=== PATIENT | male | born 1960 | race Caucasian/White ===

== ENCOUNTER 2017-11-21 20:34 | Emergency (ER) | payer BC ==
[2017-11-21] MEDS ORDERED: Acetaminophen/HYDROcodone 325-5 MG Tab PO ONE (21:36)
--- NOTE | 2017-11-21 21:38 | EDM.PDOC ---
ED HPI GENERAL MEDICAL PROBLEM - General Chief Complaint: Lower Extremity Injury/Pain Stated Complaint: CRAMP IN LEG NUMB Time Seen by Provider: 11/21/17 21:21 Source of Information: Reports: Patient, Family () History Limitations: Reports: No Limitations - History of Present Illness INITIAL COMMENTS - FREE TEXT/NARRATIVE: The patient states that he slipped and fell after he got off of his rider mower , which was on a slope, yesterday evening around 20:00. He states that he had immediate pain in his left buttock, although it was not very severe last night. He states that he was able to sleep, and even felt fairly well this morning, however, he then went fishing, and developed worsening pain, a cramping sensation, to his posterior left thigh and left buttock, around 10:00. The pain is made worse if he sits on it; he is relatively comfortable with standing. Heat and massage help, but only temporarily. He took Advil last night, Aleve this morning, and Tylenol around noon today. The patient then stated that he developed some numbness to the medial aspect of his left knee extending down primarily the anterior left leg, less the posterior left leg, around 15:00 or 16:00 this afternoon. The numbness sensation extends to the ankle, and does not extend to the foot. The patient denies recent chest pain or abdominal pain. No prior similar symptoms. The patient's PCP is Dr. Jiang. Left Hip Pain Score (Numeric/FACES): 2 - Related Data Allergies Allergy/AdvReac Type Severity Reaction Status Date / Time No Known Allergies Allergy Verified 06/03/17 07:03 Home Meds: Home Meds Acetaminophen/HYDROcodone [Eaton 325-5 MG] 1 - 2 tab PO Q6H PRN #12 tablet 11/21 [Rx] Allopurinol [Zyloprim] 100 mg PO DAILY 11/21/17 [History] Aspirin [Halfprin] 81 mg PO DAILY 11/21/17 [History] Exenatide Microspheres [Bydureon Pen] 2 mg INJECT WEEKLY 11/21/17 [History] Telmisartan [Micardis] 80 mg PO DAILY 11/21/17 [History] atorvaSTATin [Lipitor] 40 mg PO DAILY 11/21/17 [History] metFORMIN [Glucophage] 0 mg PO DAILY 11/21/17 [History] Past Medical History Cardiovascular History: Reports: High Cholesterol, Hypertension Respiratory History: Reports: Sleep Apnea (nightly CPAP 19) Musculoskeletal History: Reports: Other (See Below) (Pseudogout) Endocrine/Metabolic History: Reports: Diabetes, Type II, Obesity/BMI 30+ - Past Surgical History Musculoskeletal Surgical History: Reports: Carpal Tunnel (right only) Social & Family History - Tobacco Use Smoking Status *Q: Never Smoker - Caffeine Use Caffeine Use: Reports: Coffee - Alcohol Use Alcohol Use History: Yes Alcohol Use Frequency: Socially (occasionally to excess) - Recreational Drug Use Recreational Drug Use: No - Living Situation & Occupation Living situation: Reports: , with Spouse Occupation: Employed ([employer]) Review of Systems - Review of Systems Review Of Systems: ROS reveals no pertinent complaints other than HPI. ED EXAM, GENERAL - Physical Exam Exam: See Below Exam Limited By: No Limitations General Appearance: Alert, WD/WN, Mild Distress (Appears uncomfortable) Respiratory/Chest: No Respiratory Distress, Lungs Clear, Normal Breath Sounds, No Accessory Muscle Use Cardiovascular: Normal Peripheral Pulses, Regular Rate, Rhythm, No Edema, No Gallop, No JVD, No Murmur, No Rub Peripheral Pulses: 4+: Femoral (L), Femoral (R) GI/Abdominal: Normal Bowel Sounds, Soft, Non-Tender, No Organomegaly, No Distention, No Abnormal Bruit, No Mass, Other (Obese) (Male) Exam: Deferred Rectal (Males) Exam: Deferred Back Exam: Normal Inspection, Full Range of Motion Extremities: Other (Ecchymosis with associated induration, consistent with a hematoma noted to the patient's left buttock, and also to the superior aspect of the left posterior thigh. There is induration without visible ecchymosis to the posterior aspect of the patient's left thigh. Vascular status of the left lower extremity is intact.) Neurological: Alert, Oriented, Normal Cognition, No Motor/Sensory Deficits Psychiatric: Normal Affect Skin Exam: Warm, Dry, Intact, Normal Color, No Rash Course - Vital Signs Last Recorded V/S: Last Vital Signs Temp 37.4 C 11/21/17 20:42 Pulse 128 H 11/21/17 20:42 Resp 20 11/21/17 20:42 BP 151/71 H 11/21/17 20:42 Pulse Ox 98 11/21/17 20:42 - Orders/Labs/Meds Orders: Active Orders 24 hr Category Date Time Status Extremity Non Vascular Lt [US] Stat Exams 11/21/17 21:38 Taken VL Duplex Lwr Ext Veins Ltd Lt [US] Stat Exams 11/21/17 21:39 Taken Meds: Medications Discontinued Medications Generic Name Dose Route Start Last Admin Trade Name Freq PRN Reason Stop Dose Admin Hydrocodone Bitart/Acetaminophen 2 tab 11/21/17 21:36 11/21/17 21:42 Eaton 325-5 Mg PO 11/21/17 21:37 2 tab ONETIME ONE Administration - Re-Assessments/Exams Free Text/Narrative Re-Assessment/Exam: 11/21/17 22:53 Venous Doppler of the left lower extremity is read by [facility] as "No deep venous thrombosis is seen." 11/21/17 22:56 Nonvascular ultrasound of the left lower extremity is read by [facility] as: Complex fluid collection mid posterior/medial thigh, consistent with hematoma. Possible muscular edema in mid thigh. 11/21/17 23:03 Ultrasound results discussed with the patient and his . I suspect that the patient has a torn hamstring as the source of his thigh hematoma. It was explained to the patient and his that a MRI would be needed to confirm such a tear, which is not available from the ED. For tonight's purposes, I will have the patient take [id number] ibuprofen, and I will give him a prescription for Eaton that he can fill in the morning. I will refer the patient to Dr. Holcomb, with whom the patient can follow-up as early as tomorrow. Departure - Departure Time of Disposition: 23:05 Disposition: Home, Self-Care 01 Condition: Fair Clinical Impression: Hamstring tendon rupture, Hematoma of left thigh - Discharge Information Prescriptions: Acetaminophen/HYDROcodone [Eaton 325-5 MG] 1 - 2 tab PO Q6H PRN #12 tablet PRN Reason: Pain (Severe 7-10) Referrals: Ok Hernandez MD [Primary Care Provider] - Willard Holcomb MD [Physician] - Forms: ED Department Discharge Additional Instructions: You were seen in the emergency room after slipping and falling, causing pain to your left buttock and thigh. Workup in the ER included an ultrasound of the soft tissue of her left lower extremity, as well as a venous Doppler of your left lower extremity. The ultrasound of your left lower extremity confirmed that you have a hematoma in the back of your thigh, as well as muscle swelling. It is suspected that you have torn your hamstring tendon, although a MRI would be needed to confirm it. The venous Doppler showed no deep vein clot. Take [id number] ibuprofen, 2-3 tablets (400-600 mg) every 8 hours, with food, as needed for discomfort. Take 1 to 2 tablets of the narcotic pain reliever Eaton up to every 6 hours, as needed for pain not relieved by ibuprofen. If you take Eaton, do not drive or operate heavy machinery for 10 hours afterwards. Eaton will likely cause constipation, so consider taking a stool softener. Follow-up with the Orthopedic Surgeon Dr. Willard Holcomb at the next available appointment, for further evaluation. If any other problems, please do not hesitate to return to the ER. - My Orders Last 24 Hours: My Active Orders 11/21/17 21:38 Extremity Non Vascular Lt [US] Stat 11/21/17 21:39 VL Duplex Lwr Ext Veins Ltd Lt [US] Stat - Assessment/Plan Last 24 Hours: My Active Orders 11/21/17 21:38 Extremity Non Vascular Lt [US] Stat 11/21/17 21:39 VL Duplex Lwr Ext Veins Ltd Lt [US] Stat
--- NOTE | 2017-11-22 08:54 | US ---
Left lower extremity deep venous ultrasound: Duplex and color flow imaging was obtained of the left common femoral, proximal greater saphenous, superficial femoral, popliteal, posterior tibial and peroneal veins. Phasic flow not well seen within the left lower extremity with normal compression and augmentation seen. Impression: 1. No evidence of deep venous thrombosis within the left lower extremity or within the right common femoral vein. Diagnostic code #1 Agree with preliminary report issued by [facility] ([facility] preliminary report dictated on 11/21/17, 11:51 PM Central Time)
--- NOTE | 2017-11-22 08:54 | US ---
Left buttock and thigh ultrasound: Multiple real-time images were obtained. Posterior medial thigh shows a fluid collection measuring approximate 6.2 x 2.2 x 5.0 cm most likely due to hematoma if patient has had recent trauma. Muscle edema also identified within the mid medial thigh in area of clinical swelling. Impression: 1. Muscle hematoma as well as muscle edema being seen within the thigh. Diagnostic code #3 Agree with preliminary report issued by [facility] ([facility] preliminary report dictated on 11/21/17, 11:53 PM Central Time)
== END 2017-11-21 23:26 | disposition home or self-care (01) ==
LOC: JD.ED 20:34
DX: S76.312A Strain of muscle, fascia and tendon of the posterior muscle group at thigh level, left thigh, initial encounter (principal); S70.12XA Contusion of left thigh, initial encounter; E78.00 Pure hypercholesterolemia, unspecified; I10 Essential (primary) hypertension; E11.9 Type 2 diabetes mellitus without complications; Z79.82 Long term (current) use of aspirin; Z79.84 Long term (current) use of oral hypoglycemic drugs; W01.0XXA Fall on same level from slipping, tripping and stumbling without subsequent striking against object, initial encounter
CPT/HCPCS: 76881; 93971; 99284; A9270; 99283

== ENCOUNTER 2019-03-08 06:29 | Day surgery (SDC) | payer BC ==
[~2019-03-08 06:29] MED LIST: FLU Vacc QS2019-20(6MOS+)/PF 60 MCG/0.5 ML SYRINGE IM ONE; Lactated Ringers 1,000 ML IV SCH; Lidocaine 1%/Sod Bicarbonate in NS 8.4% 1 ML Syringe IDERM PRN; Sodium Chloride 0.9% 10 ML Syringe FLUSH PRN
[2019-03-08] MEDS ORDERED: ceFAZolin 1 GM Vial ONE (07:07)
[2019-03-08] MEDS: Bupivacaine 0.25% 10 ML SDV ONE ×2 (07:33→07:39)
[2019-03-08] MEDS: Lidocaine 1% 30 ML SDV ONE ×2 (07:33→07:39)
[2019-03-08] MEDS ORDERED: FLU Vacc QS2019-20(6MOS+)/PF 60 MCG/0.5 ML SYRINGE IM ONE (09:00)
--- NOTE | 2019-03-13 09:02 | PCM.OPNOTE ---
- General Post-Op/Procedure Note Date of Surgery/Procedure: 03/08/19 Operative Procedure(s): bilateral middle finger a1 amanda release Pre Op Diagnosis: bilateral middle finger stenosing tenosynovitis Post-Op Diagnosis: Same Anesthesia Technique: Local Primary Surgeon: Jl Townsend Instrument Maker Apprentice: Cha Eden in mLs: 5 Complications: None Condition: Good
--- NOTE | 2019-03-13 09:23 | OR ---
DATE OF OPERATION: 03/08/2019 SURGEON: Jl Townsend MD OPERATION PERFORMED: Bilateral middle finger A1 amanda release. PREOPERATIVE DIAGNOSIS: Bilateral middle finger stenosing tenosynovitis. POSTOPERATIVE DIAGNOSIS: Bilateral middle finger stenosing tenosynovitis. ANESTHESIA: Local only. SERGER: Cha Eden PA-C. ESTIMATED BLOOD LOSS: 5 mL. COMPLICATIONS: None. CONDITION: Stable. DESCRIPTION OF PROCEDURE: The patient was identified in the preoperative holding area. Proper site was marked and identified by the surgeon. The patient was taken back to the operating theatre where the bilateral upper extremities were sterilely prepped and draped in the usual sterile fashion. An OR time-out was performed. Starting with the left side, 1% lidocaine without epinephrine and 0.25% Marcaine without epinephrine were used to anesthetize over the A1 amanda at the left middle finger. Esmarch was used as a tourniquet on the forearm. Transverse incision was made. Blunt dissection was taken down to the A1 amanda. Ragnell retractors protected the neurovascular bundles and a [place] blade was used to resect the A1 amanda both proximally and distally until it was fully released. The patient was able to make a full fist and it had no triggering. At this time, adequate saline was irrigated through the wound and 4-0 nylon suture was used for closure of the incision and then attention was turned to the right side. At this time, again Esmarch was used as a tourniquet on the forearm and 1% lidocaine without epinephrine and 0.25% Marcaine without epinephrine were used again to anesthetize over the right middle finger A1 amanda, and the similar procedure was done all the way down making sure to release it with a [place] blade all the way proximally and distally. Again, this was closed with 4- 0 nylon. The patient was placed in sterile soft dressings bilaterally and was sent to the PACU in stable condition. MMESTEBAN /[id number]
== END 2019-03-08 09:05 | disposition home or self-care (01) ==
LOC: JD.SDS 06:29
PROVIDERS: ATTEND Orthopaedic Surgery
DX: M65.332 Trigger finger, left middle finger (principal); M65.331 Trigger finger, right middle finger; M10.9 Gout, unspecified; E78.00 Pure hypercholesterolemia, unspecified; I10 Essential (primary) hypertension; G47.33 Obstructive sleep apnea (adult) (pediatric); E11.9 Type 2 diabetes mellitus without complications; Z99.89 Dependence on other enabling machines and devices; Z79.899 Other long term (current) drug therapy; Z79.82 Long term (current) use of aspirin
CPT/HCPCS: 26055; 82962; 87641; 90686; J0690; J2001; J3490; J7120; G0008

== ENCOUNTER 2019-04-24 08:46 | Emergency (ER) | payer BC ==
[2019-04-24] MEDS ORDERED: EPINEPHrine 1 MG/ML SDV IM ONE ×2 (09:07→10:27)
[2019-04-24] MEDS ORDERED: diphenhydrAMINE 50 MG Cap PO ONE (09:07)
[2019-04-24] MEDS ORDERED: Sodium Chloride 0.9% 10 ML Syringe FLUSH PRN (09:08)
[2019-04-24] MEDS ORDERED: methylPREDNISolone Sodium Succinate 125 MG/2 ML SDV IVPUSH ONE (09:08)
[2019-04-24] MEDS ORDERED: EPINEPHrine 1 MG/1 ML Amp ONE (09:12)
--- NOTE | 2019-04-24 09:12 | EDM.PDOC ---
ED HPI GENERAL MEDICAL PROBLEM - General Chief Complaint: Allergic Reaction Stated Complaint: SEVERE ALLERGIC REACTION Time Seen by Provider: 04/24/19 09:01 Source of Information: Reports: Patient, RN Notes Reviewed - History of Present Illness INITIAL COMMENTS - FREE TEXT/NARRATIVE: 5-year-old male presented to [facility] with signs and symptoms of allergic reaction. He was advised to come here to the emergency department. States he had onset of some mild itchiness last evening around bedtime. He awakened this morning he felt much more itchy all over and now has various areas of rash and erythema and tired body. Has not taken any new medication. His last meal was yesterday afternoon. He has no idea what is causing this reaction. He does feel some swelling around his eyes but no other area facial swelling. No chest pain or difficulty breathing. The itchiness is his major distress at this time. - Related Data Allergies Allergy/AdvReac Type Severity Reaction Status Date / Time No Known Allergies Allergy Verified 03/07/19 10:37 Home Meds: Home Meds Allopurinol [Zyloprim] 100 mg PO DAILY 11/21/17 [History] Aspirin [Halfprin] 81 mg PO DAILY 11/21/17 [History] atorvaSTATin [Lipitor] 40 mg PO DAILY 11/21/17 [History] Canagliflozin/Metformin HCl [Invokamet Xr 150-500 mg Tablet] 2 tab PO DAILY 01/16 [History] Dulaglutide [Trulicity] 0.5 ml SQ WE 03/07/19 [History] Telmisartan/Hydrochlorothiazid [Telmisartan-Hctz 40-12.5 mg Tb] 1 tab PO DAILY 03/07/19 [History] traMADol [Ultram] 50 - 100 mg PO Q6H PRN #15 tab 03/08/19 [Rx] Past Medical History HEENT History: Reports: None Cardiovascular History: Reports: High Cholesterol, Hypertension Respiratory History: Reports: Sleep Apnea Other Respiratory History: uses c-pap Gastrointestinal History: Reports: None Genitourinary History: Reports: None FUR FARMER History: Reports: None Musculoskeletal History: Reports: Gout, Other (See Below) Other Musculoskeletal History: pseudo gout Neurological History: Reports: None Psychiatric History: Reports: None Endocrine/Metabolic History: Reports: Diabetes, Type II, Obesity/BMI 30+ Hematologic History: Reports: None Immunologic History: Reports: None Oncologic (Cancer) History: Reports: None Dermatologic History: Reports: None - Past Surgical History Head Surgeries/Procedures: Reports: None HEENT Surgical History: Reports: None Cardiovascular Surgical History: Reports: None Respiratory Surgical History: Reports: None GI Surgical History: Reports: None Male Surgical History: Reports: None Endocrine Surgical History: Reports: None Neurological Surgical History: Reports: None Musculoskeletal Surgical History: Reports: Carpal Tunnel Oncologic Surgical History: Reports: None Dermatological Surgical History: Reports: None Social & Family History - Tobacco Use Smoking Status *Q: Never Smoker - Caffeine Use Caffeine Use: Reports: Coffee - Recreational Drug Use Recreational Drug Use: No - Living Situation & Occupation Living situation: Reports: , with Spouse Occupation: Employed ([employer]) ED ROS ALLERGIC REACTION - Review of Systems Review Of Systems: See Below Constitutional: Denies: Fever, Chills HEENT: Denies: Throat Pain, Vertigo, Vision Change Respiratory: Denies: Shortness of Breath, Wheezing Cardiovascular: Denies: Chest Pain GI/Abdominal: Denies: Abdominal Pain, Nausea, Vomiting Musculoskeletal: Reports: No Symptoms Skin: Reports: Rash, Erythema Neurological: Reports: No Symptoms ED EXAM GENERAL NO PERIP PULSE - Physical Exam Exam: See Below General Appearance: Alert, Moderate Distress Ears: Normal External Exam Nose: Normal Inspection Throat/Mouth: Normal Inspection, Normal Oropharynx Head: Facial Swelling (There is very mild periorbital swelling) Neck: Supple, Full Range of Motion Respiratory/Chest: No Respiratory Distress, Lungs Clear, Normal Breath Sounds. No: Rhonchi, Wheezing Cardiovascular: Tachycardia GI/Abdominal: Soft, Non-Tender Back Exam: No: CVA Tenderness (L), CVA Tenderness (R) Extremities: Normal Inspection, Normal Range of Motion. No: Leg Pain Neurological: Alert, Oriented, No Motor/Sensory Deficits Skin Exam: Warm, Dry, Erythema (Generalized hives and erythema face neck trunk upper and lower extremities) Course - Vital Signs Last Recorded V/S: Last Vital Signs Temp 97.8 F 04/24/19 08:59 Pulse 115 H 04/24/19 08:59 Resp 24 H 04/24/19 08:59 BP 126/80 04/24/19 08:59 Pulse Ox 97 04/24/19 08:59 - Orders/Labs/Meds Orders: Active Orders 24 hr Category Date Time Status Blood Glucose Check, Bedside [RC] ONETIME Care 04/24/19 09:57 Active Peripheral IV Care [RC] . DIRECTED Care 04/24/19 09:09 Active Sodium Chloride 0.9% [Saline Flush] Med 04/24/19 09:08 Active 10 ml FLUSH ASDIRECTED PRN Peripheral IV Insertion Adult [OM.PC] Stat Oth 04/24/19 09:08 Ordered Medication Orders Sodium Chloride (Saline Flush) 10 ml FLUSH ASDIRECTED PRN PRN Reason: Keep Vein Open Last Admin: 04/24/19 09:19 Dose: 10 ml Labs: Laboratory Tests 04/24/19 Range/Units 09:56 POC Glucose 168 H (70-105) mg/dL Meds: Medications Generic Name Dose Route Start Last Admin Trade Name Freq PRN Reason Stop Dose Admin Sodium Chloride 10 ml 04/24/19 09:08 04/24/19 09:19 Saline Flush FLUSH 10 ml ASDIRECTED PRN Administration Keep Vein Open Discontinued Medications Generic Name Dose Route Start Last Admin Trade Name Freq PRN Reason Stop Dose Admin Diphenhydramine HCl 50 mg 04/24/19 09:07 04/24/19 09:18 Benadryl PO 04/24/19 09:08 50 mg ONETIME ONE Administration Epinephrine HCl 0.3 mg 04/24/19 09:07 04/24/19 09:18 Adrenalin IM 04/24/19 09:08 Not Given ONETIME ONE Epinephrine HCl Confirm 04/24/19 09:12 04/24/19 09:23 Adrenalin Administered 04/24/19 09:13 Not Given Dose 1 mg .ROUTE .STK-MED ONE Epinephrine HCl 0.3 mg 04/24/19 09:17 04/24/19 09:17 Adrenalin IM 04/24/19 09:18 0.3 mg ONETIME ONE Administration Epinephrine HCl 0.3 mg 04/24/19 10:27 04/24/19 10:34 Adrenalin IM 04/24/19 10:28 Not Given ONETIME ONE Epinephrine HCl 0.3 mg 04/24/19 10:45 04/24/19 10:44 Adrenalin IM 04/24/19 10:46 0.3 mg ONETIME ONE Administration Loratadine 10 mg 04/24/19 10:30 04/24/19 10:44 Claritin PO 04/24/19 10:31 10 mg ONETIME ONE Administration Methylprednisolone Sodium Succinate 125 mg 04/24/19 09:08 04/24/19 09:18 Solu-Medrol IVPUSH 04/24/19 09:09 125 mg ONETIME ONE Administration - Re-Assessments/Exams Free Text/Narrative Re-Assessment/Exam: 04/24/19 11:05 Patient was initially treated with epi 0.3 mg IM, Benadryl 50 by mouth, Solu- Medrol 125 mg IV. Over time the hives and erythema did lessen but did not go away completely. However itchiness did go away and patient was feeling much better the couple of times I did recheck to see how he is doing. Epinephrine was repeated 1 and he was also given a dose of Claritin by mouth. He and his are not aware of a good explanation of why this occurred. He had a quite simple meal at home last evening. They had been traveling and eating out a day before but no rash or hives than. No new medication although he is on multiple medications for hypertension, diabetes. Discharge instructions as documented. Departure - Departure Time of Disposition: 10:45 Disposition: Home, Self-Care 01 Condition: Fair Clinical Impression: Acute urticaria - Discharge Information Instructions: Allergies, Adult, Eifa-wa-Idec Referrals: Ok Hernandez MD [Primary Care Provider] - Forms: ED Department Discharge Additional Instructions: Continue Claritin 10 mg daily, prednisone 40 mg twice daily for 2 days, than prednisone 40 mg q AM for the next 2 days. Steroid medicine will typically cause blood sugars to run higher so do watch your blood sugars carefully and and be very careful to limit her carbohydrate intake this week. Follow-up clinic if not much better within 1-2 days as expected, return to ED as needed if symptoms worsening in any way. - My Orders Last 24 Hours: My Active Orders 04/24/19 09:08 Sodium Chloride 0.9% [Saline Flush] 10 ml FLUSH ASDIRECTED PRN Peripheral IV Insertion Adult [OM.PC] Stat 04/24/19 09:09 Peripheral IV Care [RC] . DIRECTED 04/24/19 09:57 Blood Glucose Check, Bedside [RC] ONETIME - Assessment/Plan Last 24 Hours: My Active Orders 04/24/19 09:08 Sodium Chloride 0.9% [Saline Flush] 10 ml FLUSH ASDIRECTED PRN Peripheral IV Insertion Adult [OM.PC] Stat 04/24/19 09:09 Peripheral IV Care [RC] . DIRECTED 04/24/19 09:57 Blood Glucose Check, Bedside [RC] ONETIME
[2019-04-24] MEDS ORDERED: EPINEPHrine 1 MG/1 ML Amp IM ONE ×2 (09:17→10:45)
[2019-04-24] MEDS ORDERED: Loratadine 10 MG Tab PO ONE (10:30)
== END 2019-04-24 10:56 | disposition home or self-care (01) ==
LOC: JD.ED 08:46
DX: L50.9 Urticaria, unspecified (principal); I10 Essential (primary) hypertension; E11.9 Type 2 diabetes mellitus without complications; E78.00 Pure hypercholesterolemia, unspecified; M10.9 Gout, unspecified; Z79.82 Long term (current) use of aspirin; Z79.899 Other long term (current) drug therapy
CPT/HCPCS: 82962; 96372; 96374; 99284; A9270; J0171; J2930; 99283

== ENCOUNTER → 2020-06-20 | Day surgery (SDC) | payer BC ==
[~2020-06-20] MED LIST changes: +Bupivacaine 0.25% 10 ML SDV ONE; -FLU Vacc QS2019-20(6MOS+)/PF 60 MCG/0.5 ML SYRINGE IM ONE; +Ketamine 500 mg/10 ML MDV ONE; +Lidocaine 1% 30 ML SDV ONE; +Lidocaine 1% 6 ML ONE; +Midazolam 1 MG/ML 2 ML SDV ONE; +Propofol 200 MG/20 ML SDV ONE; +ceFAZolin 1 GM Vial ONE; +fentaNYL 100 MCG/2 ML SDV ONE
--- NOTE | 2020-06-20 07:36 | PCM.PREANE ---
Preanesthetic Assessment - Procedure Proposed Procedure: Right hand trigger finger release ring finger - Anesthesia/Transfusion/Family Hx Anesthesia History: Prior Anesthesia Without Reaction Family History of Anesthesia Reaction: No - Review of Systems General: No Symptoms Pulmonary: Other (PAT with CPAP) Cardiovascular: Other (CAD, HTN) Gastrointestinal: No Symptoms Neurological: No Symptoms Other: Reports: None (Obesity), Diabetes (Blood Glucose is 109 mg/dl this morning. ) - Physical Assessment NPO Status Date: 06/19/20 NPO Status Time: 20:00 Vital Signs: Last Vital Signs Temp 36.2 C 06/20/20 06:00 Pulse 74 06/20/20 06:00 Resp 16 06/20/20 06:00 BP 122/71 06/20/20 06:00 Pulse Ox 95 06/20/20 06:00 Height: 1.75 m Weight: 117.934 kg ASA Class: 3 Mental Status: Alert & Oriented x3 Airway Class: Mallampati = 3 Dentition: Reports: Missing Tooth/Teeth, Caries Thyro-Mental Finger Breadths: 2 Mouth Opening Finger Breadths: 3 ROM/Head Extension: Full (Large neck circumfrance) Lungs: Clear to Auscultation, Normal Respiratory Effort Cardiovascular: Regular Rate, Regular Rhythm - Lab Values: Laboratory Last Values POC Glucose 109 mg/dL (80-115) 06/20/20 06:18 MRSA (PCR) Negative 06/14/20 16:36 - Allergies Allergies/Adverse Reactions: Allergies Allergy/AdvReac Type Severity Reaction Status Date / Time No Known Allergies Allergy Verified 06/19/20 14:58 - Anesthesia Plan Pre-Op Medication Ordered: Anxiolytic - Acknowledgements Anesthesia Type Planned: MAC Pt an Appropriate Candidate for the Planned Anesthesia: Yes Alternatives and Risks of Anesthesia Discussed w Pt/Guardian: Yes Pt/Guardian Understands and Agrees with Anesthesia Plan: Yes PreAnesthesia Questionnaire HEENT History: Reports: Other (See Below) Other HEENT History: wears glasses Cardiovascular History: Reports: High Cholesterol, Hypertension Respiratory History: Reports: Sleep Apnea Other Respiratory History: uses c-pap Gastrointestinal History: Reports: None Genitourinary History: Reports: None GARMENT FITTER History: Reports: None Musculoskeletal History: Reports: Gout, Osteoarthritis, Other (See Below) Other Musculoskeletal History: right knee pain, left hamstring tear, bilateral trigger fingers Neurological History: Reports: Other (See Below) Other Neuro History: sciatic nerve injury Psychiatric History: Reports: None Endocrine/Metabolic History: Reports: Diabetes, Type II, Obesity/BMI 30+ Hematologic History: Reports: None Immunologic History: Reports: None Oncologic (Cancer) History: Reports: None Dermatologic History: Reports: None - Infectious Disease History Infectious Disease History: Reports: None - Past Surgical History Head Surgeries/Procedures: Reports: None HEENT Surgical History: Reports: None, Oral Surgery Cardiovascular Surgical History: Reports: None Respiratory Surgical History: Reports: None GI Surgical History: Reports: None Female Surgical History: Reports: None Male Surgical History: Reports: None Endocrine Surgical History: Reports: None Neurological Surgical History: Reports: None Musculoskeletal Surgical History: Reports: Carpal Tunnel Oncologic Surgical History: Reports: None Dermatological Surgical History: Reports: None - SUBSTANCE USE Tobacco Use Status *Q: Never Tobacco User Recreational Drug Use History: No - HOME MEDS Home Medications: Home Meds Aspirin [Halfprin] 81 mg PO DAILY 11/21/17 [History] allopurinoL [Zyloprim] 100 mg PO DAILY 11/21/17 [History] atorvaSTATin [Lipitor] 40 mg PO DAILY 11/21/17 [History] Canagliflozin/Metformin HCl [Invokamet Xr 150-500 mg Tablet] 2 tab PO DAILY 03/07/19 [History] Dulaglutide [Trulicity] 0.5 ml SQ WE 03/07/19 [History] Telmisartan/Hydrochlorothiazid [Telmisartan-Hctz 40-12.5 mg Tb] 1 tab PO DAILY 03/07/19 [History] Acetaminophen/HYDROcodone [[place] 325-5 MG] 1 - 2 tab PO Q6H PRN #5 tablet 06/20/20 [Rx] - CURRENT (IN HOUSE) MEDS Current Meds: Current Medications Lactated Ringer's (Ringers, Lactated) 1,000 mls @ 125 mls/hr IV ASDIRECTED SAHRA Stop: 06/20/20 23:00 Last Admin: 06/20/20 06:15 Dose: 125 mls/hr Documented by: Lidocaine/Sodium Bicarbonate (Buffered Lidocaine 1% In Ns 8.4%) 0.25 ml IDERM ONETIME PRN PRN Reason: Prior to IV Start Stop: 06/20/20 18:00 Last Admin: 06/20/20 06:14 Dose: 0.25 ml Documented by: Sodium Chloride (Saline Flush) 10 ml FLUSH ASDIRECTED PRN PRN Reason: Keep Vein Open Stop: 06/20/20 18:00 Discontinued Medications Bupivacaine HCl (Sensorcaine-Mpf 0.25%) Confirm Administered Dose 10 ml .ROUTE .STK-MED ONE Stop: 06/20/20 06:18 Cefazolin Sodium (Ancef) Confirm Administered Dose 2 gm .ROUTE .STK-MED ONE Stop: 06/20/20 06:44 Fentanyl (Sublimaze) Confirm Administered Dose 100 mcg .ROUTE .STK-MED ONE Stop: 06/20/20 06:44 Lidocaine HCl (Xylocaine-Mpf 1%) Confirm Administered Dose 6 mls @ as directed .ROUTE .STK-MED ONE Stop: 06/20/20 06:49 Ketamine HCl (Ketalar) Confirm Administered Dose 500 mg .ROUTE .STK-MED ONE Stop: 06/20/20 06:44 Lidocaine HCl (Xylocaine-Mpf 1%) Confirm Administered Dose 30 ml .ROUTE .STK-MED ONE Stop: 06/20/20 06:18 Midazolam HCl (Versed 1 Mg/Ml) Confirm Administered Dose 2 mg .ROUTE .STK-MED ONE Stop: 06/20/20 06:44 Propofol (Diprivan 20 Ml) Confirm Administered Dose 400 mg .ROUTE .STK-MED ONE Stop: 06/20/20 06:44
--- NOTE | 2020-06-20 11:55 | PCM.OPNOTE ---
- General Post-Op/Procedure Note Date of Surgery/Procedure: 06/20/20 Operative Procedure(s): right ring finger a1 amanda release Pre Op Diagnosis: right ring finger stenosing tenosynovitis Post-Op Diagnosis: Same Anesthesia Technique: Local, MAC Primary Surgeon: Jl Townsend Anesthesia Provider: Shayla Cuevas Silverware Supervisor: Cha Eden EBL in mLs: 5 Complications: None Condition: Good Free Text/Narrative:: Intake & Output 06/19/20 06/20/20 06/20/20 22:59 06:59 14:59 Intake Total 175 Balance 175
--- NOTE | 2020-06-20 13:25 | PCM48HPAN ---
Post Anesthesia Note - EVALUATION WITHIN 48HRS OF ANESTHETIC Vital Signs in Normal Range: Yes Patient Participated in Evaluation: Yes Respiratory Function Stable: Yes Airway Patent: Yes Cardiovascular Function Stable: Yes Hydration Status Stable: Yes Pain Control Satisfactory: Yes Nausea and Vomiting Control Satisfactory: Yes Mental Status Recovered: Yes Vital Signs: Last Vital Signs Temp 36.8 C 06/20/20 07:54 Pulse 70 06/20/20 07:54 Resp 16 06/20/20 07:54 BP 121/78 06/20/20 07:54 Pulse Ox 93 L 06/20/20 07:54
--- NOTE | 2020-06-30 18:20 | OR ---
DATE OF OPERATION: 06/20/2020 SURGEON: Jl Townsend MD OPERATION PERFORMED: Right ring finger A1 amanda release. PREOPERATIVE DIAGNOSIS: Right ring finger stenosing tenosynovitis. POSTOPERATIVE DIAGNOSIS: Right ring finger stenosing tenosynovitis. ANESTHESIA: Local MAC. ANESTHESIA PROVIDER: Adelina Leonardo HEAD CAGER: Cha Eden PA-C ESTIMATED BLOOD LOSS: Less than 5 mL. COMPLICATIONS: None. CONDITION: Stable. DESCRIPTION OF PROCEDURE: The patient was identified in the preoperative holding area. Proper site was marked and identified by the surgeon. The patient was taken back to the operating theater, where after adequate anesthesia, the patient's right upper extremity was sterilely prepped and draped in usual sterile fashion. OR time- out was performed. The patient received 2 g IV Ancef. At this time, 1% lidocaine without epinephrine and 0.25% Marcaine without epinephrine were used to anesthetize over the A1 amanda region of the right ring finger. A transverse incision was made. The blunt dissection was taken down to the A1 amanda. Ragnell retractors were used to protect the neurovascular bundles. At this time, a [place] blade was then used to resect the A1 amanda both proximally and distally under direct visualization. The tendon was brought through the wound bed and showed to have no tendinous adhesions. Adequate saline was irrigated through the wound. 4-0 nylon was used for closure of the skin. The patient was placed in a sterile soft dressing and sent to the PACU in stable condition. MMODAL /[id number]
== END | disposition home or self-care (01) ==
LOC: JD.SDS 05:58
PROVIDERS: ATTEND Orthopaedic Surgery
DX: M65.841 Other synovitis and tenosynovitis, right hand (principal); E78.00 Pure hypercholesterolemia, unspecified; I10 Essential (primary) hypertension; G47.33 Obstructive sleep apnea (adult) (pediatric); E66.3 Overweight; E11.9 Type 2 diabetes mellitus without complications; Z79.899 Other long term (current) drug therapy; Z79.82 Long term (current) use of aspirin; Z98.890 Other specified postprocedural states; Z68.39 Body mass index [BMI] 39.0-39.9, adult
CPT/HCPCS: 26055; 82962; 87641; J0690; J2001; J2250; J2704; J3490; J7120; 01810; J3010

== ENCOUNTER 2021-09-17 08:58 | Day surgery (SDC) | payer BC ==
[~2021-09-17 08:58] MED LIST changes: -Bupivacaine 0.25% 10 ML SDV ONE; -Ketamine 500 mg/10 ML MDV ONE; -Lidocaine 1% 30 ML SDV ONE; -Lidocaine 1% 6 ML ONE; -Midazolam 1 MG/ML 2 ML SDV ONE; -Propofol 200 MG/20 ML SDV ONE; +Sodium Chloride 0.9% 10 ML Syringe FLUSH SCH; -ceFAZolin 1 GM Vial ONE; -fentaNYL 100 MCG/2 ML SDV ONE
[2021-09-17] MEDS ORDERED: Bupivacaine 0.25% 10 ML SDV ONE (09:29)
[2021-09-17] MEDS ORDERED: EPINEPHrine 1 MG/ML 30 ML MDV IRR SCH (13:30)
== END 2021-09-17 10:10 | disposition home or self-care (01) ==
LOC: JD.SDS 08:58
PROVIDERS: ATTEND Orthopaedic Surgery
DX: E83.52 Hypercalcemia (principal); Z53.09 Procedure and treatment not carried out because of other contraindication; E11.9 Type 2 diabetes mellitus without complications; E78.00 Pure hypercholesterolemia, unspecified; I10 Essential (primary) hypertension; E66.9 Obesity, unspecified; Z98.890 Other specified postprocedural states; Z79.82 Long term (current) use of aspirin; Z79.899 Other long term (current) drug therapy
CPT/HCPCS: 82947; J3490

== ENCOUNTER 2022-04-15 05:55 | Day surgery (SDC) | payer BC ==
[2022-04-15] MEDS ORDERED: Bupivacaine 0.25% 10 ML SDV ONE (06:14)
[2022-04-15] MEDS ORDERED: Midazolam 1 MG/ML 2 ML SDV ONE (06:43)
[2022-04-15] MEDS ORDERED: Propofol 200 MG/20 ML SDV ONE ×2 (06:43→06:51)
[2022-04-15] MEDS ORDERED: Ondansetron 4 MG/2 ML SDV ONE (06:43)
[2022-04-15] MEDS ORDERED: fentaNYL 100 MCG/2 ML SDV ONE (06:44)
[2022-04-15] MEDS ORDERED: Lidocaine 1% 5 ML VIAL ONE (06:44)
[2022-04-15] MEDS ORDERED: ceFAZolin 2 GM Vial ONE (06:47)
[2022-04-15] MEDS ORDERED: EPINEPHrine 1 MG/ML 30 ML MDV IRR SCH (07:00)
[2022-04-15] MEDS ORDERED: Dexamethasone 4 MG/ML 5 ML MDV ONE (07:20)
[2022-04-15] MEDS ORDERED: Phenylephrine HCl In 0.9% NaCl 1 MG/10 ML Vial ONE (07:27)
[2022-04-15] MEDS ORDERED: Acetaminophen/HYDROcodone 325-5 MG Tab PO PRN (07:30)
[2022-04-15] MEDS ORDERED: HYDROmorphone 0.5 MG/0.5 ML Syringe IVPUSH PRN (07:34)
[2022-04-15] MEDS ORDERED: fentaNYL 100 MCG/2 ML SDV IVPUSH PRN (07:34)
[2022-04-15] MEDS ORDERED: Ondansetron 4 MG/2 ML SDV IVPUSH PRN (07:34)
[2022-04-15] MEDS ORDERED: Succinylcholine 200 MG/10 ML MDV ONE (07:45)
[2022-04-15] MEDS ORDERED: Ketorolac 15 MG/ML SDV ONE (07:58)
[2022-04-15] MEDS ORDERED: Lactated Ringers 1,000 ML ONE (07:58)
== END 2022-04-15 09:50 | disposition home or self-care (01) ==
LOC: JD.SDS 05:55
PROVIDERS: ATTEND Orthopaedic Surgery
DX: S83.242A Other tear of medial meniscus, current injury, left knee, initial encounter (principal); M22.42 Chondromalacia patellae, left knee; G47.33 Obstructive sleep apnea (adult) (pediatric); I10 Essential (primary) hypertension; E66.3 Overweight; E78.00 Pure hypercholesterolemia, unspecified; E11.9 Type 2 diabetes mellitus without complications; M10.9 Gout, unspecified; Z79.899 Other long term (current) drug therapy; Z79.82 Long term (current) use of aspirin; Z68.38 Body mass index [BMI] 38.0-38.9, adult; Z98.890 Other specified postprocedural states
CPT/HCPCS: 29881; 82947; J0171; J0690; J1100; J1885; J2250; J2405; J2704; J3010; J3490; J7120; 01400; J0330

== ENCOUNTER → 2022-05-11 | Day surgery (SDC) | payer BC ==
[~2022-05-11] MED LIST changes: +Bupivacaine 0.25% 10 ML SDV ONE; +Lidocaine 1% 10 ML MDV ONE; +Lidocaine 1% 6 ML ONE; +Propofol 200 MG/20 ML SDV ONE; +ceFAZolin 2 GM Vial ONE; +fentaNYL 100 MCG/2 ML SDV ONE
== END | disposition home or self-care (01) ==
LOC: JD.SDS 06:11
PROVIDERS: ATTEND Orthopaedic Surgery
DX: M65.342 Trigger finger, left ring finger (principal); M65.842 Other synovitis and tenosynovitis, left hand; I10 Essential (primary) hypertension; E78.00 Pure hypercholesterolemia, unspecified; G47.33 Obstructive sleep apnea (adult) (pediatric); M19.90 Unspecified osteoarthritis, unspecified site; I47.1 Supraventricular tachycardia; E11.9 Type 2 diabetes mellitus without complications; M10.9 Gout, unspecified; E66.3 Overweight; Z79.899 Other long term (current) drug therapy; Z79.82 Long term (current) use of aspirin; Z98.890 Other specified postprocedural states; Z68.38 Body mass index [BMI] 38.0-38.9, adult
CPT/HCPCS: 26055; 82947; J0690; J2704; J3010; J3490; J7120; 01810